=== PATIENT | male | born 1965 | race Caucasian/White ===

== ENCOUNTER 2017-04-26 10:24 | Emergency (ER) | payer SELFPAY ==
[2017-04-26] MEDS ORDERED: Ketorolac Tromethamine 30 MG/ML VIAL ONE (12:15)
[2017-04-26 12:57] LABS: Bilirubin Negative (Negative); Blood, Urine Negative (Negative); Clarity CLEAR (Clear); Glucose, Urine (Dipstick) Negative (Negative); Leukocyte Negative (Negative); Nitrite Negative (Negative); Protein, Urine (Dipstick) Negative (Neg-Trace); Specific Gravity, Urine 1.022 (1.002-1.036); Urobilinogen 0.2 mg/dL (0.2-1.0)
[2017-04-26] MEDS ORDERED: Diazepam 5 MG TAB ONE (12:58)
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
== END 2017-04-26 13:37 | disposition home or self-care (01) ==
LOC: ERS 10:24
DX: M54.42 Lumbago with sciatica, left side (principal); F17.210 Nicotine dependence, cigarettes, uncomplicated
CPT/HCPCS: 72100; 72170; 81003; 96372; J1885

== ENCOUNTER 2017-05-30 20:17 | Emergency (ER) | payer SELFPAY | END 2017-05-30 20:35 | disposition left against medical advice (07) | LOC: ERS 20:17 | DX: Z53.21 Procedure and treatment not carried out due to patient leaving prior to being seen by health care provider (principal) ==

== ENCOUNTER 2017-05-30 20:56 | Emergency (ER) | payer BC, SELFPAY ==
[2017-05-30 21:54] LABS: #Basophils 0.1 thou/uL (0.0-0.2); #Eosinphils 0.1 thou/uL (0.0-0.7); #Lymphocytes 2.6 thou/uL (1.20-3.40); #Monocytes 0.8 thou/uL (0.11-0.59); #Neutrophils 5.2 thou/uL (1.40-6.50); %Basophils 0.6 % (0.0-1.0); %Eosinophils 0.7 % (0.0-10.0); %Lymphocytes 30.1 % (21.0-51.0); %Monocytes 8.7 % (0.0-10.0); %Neutrophils 59.8 % (42.0-75.0); Hemoglobin 14.5 g/dL (14.0-18.0); Mean Corpuscular HGB CONC 34.7 g/dL (32.0-36.0); Mean Corpuscular Hemoglobin 31.2 pg (27.0-31.0); Mean Corpuscular Volume 89.9 fl (80.0-94.0); Mean Platelet Volume 7.3 fL (7.4-10.4); Platelet Count 205 thou/uL (130-400); RBC Distribution Width 11.9 % (11.5-14.5); Red Blood Cell (RBC) Count 4.65 mill/uL (4.70-6.10); White Blood Cell (WBC) Count 8.7 thou/uL (4.8-10.8)
[2017-05-30 22:08] LABS: Anion Gap 12 mmol/L (10-20); BUN (Urea Nitrogen) 21 mg/dL (8.4-25.7); Calc. Creatinine Clearance 0 mL/min (70-130); Calcium 9.1 mg/dL (7.8-10.44); Carbon Dioxide 24 mmol/L (22-29); Chloride 108 mmol/L (98-107); Estimated GFR-MDRD 89; Glucose 112 mg/dL (70-105); Potassium 4.1 mmol/L (3.5-5.1); Sodium 140 mmol/L (136-145)
[2017-05-30 22:11] LABS: CKMB 1.8 ng/mL (0-6.6); Troponin I 0.025 ng/mL (< 0.028)
[2017-05-30] MEDS ORDERED: HYDROcodone/Acetaminophen 10/325 mg Tablet ONE (22:24)
== END 2017-05-30 22:23 | disposition home or self-care (01) ==
LOC: SCSER 20:56
DX: I10 Essential (primary) hypertension (principal); M54.16 Radiculopathy, lumbar region; G89.29 Other chronic pain; F17.210 Nicotine dependence, cigarettes, uncomplicated; Z71.6 Tobacco abuse counseling
CPT/HCPCS: 80048; 82553; 84484; 85025; 93005; 96372; 99406; J1170

== ENCOUNTER 2017-07-11 12:39 | Outpatient (CLI) | payer BC, OTHER ==
--- NOTE | 2017-07-11 15:56 | MRI ---
MRI OF THE LUMBAR SPINE WITH AND WITHOUT CONTRAST: Date: 07-11-17 Comparison: None. History: Lumbar radiculopathy. Technique: Multiplanar, multisequence MR imaging of the lumbar spine provided with and without contra st. FINDINGS: The sagittal STIR imaging demonstrates no focal area of osseous marrow edema. There is a mild degree of dextroscoliosis. There is no significant anterolisthesis or retrolisthesis noted. On the basis of five lumbar type vertebral bodies, conus medullaris terminates at T12. T12-L1: Intervertebral disc height and signal intensities within normal limits. No significant centra l canal or neural foraminal stenosis. L1-2: There is disc space narrowing, disc desiccation and mild disc bulge with no central canal or ne ural foraminal stenosis. L2-3: Mild facet hypertrophy. Intervertebral disc height and signal intensity is within normal limits with no significant central canal or neural foraminal stenosis. L3-4: There is mild bilateral facet hypertrophy and hypertrophy of the ligamentum flavum. There is di sc space narrowing, disc desiccation and anterior osteophyte formation as well as disc bulge. There i s a small left paracentral annular tear and associated disc protrusion. There is mild left neural for aminal stenosis. No significant central canal or right neural foraminal stenosis. L4-5: There is disc space narrowing and disc desiccation. There is mild bilateral facet hypertrophy. No significant central canal or neural foraminal stenosis. L5-S1: Mild bilateral facet hypertrophy. There is osteophyte extension into the right neural foramen with a moderate degree of right neural foraminal stenosis. There is a left paracentral disc herniatio n with slight inferior migration. Disc herniation in the left paracentral region measures 1.0 x 0.7 c m and causes prominent left lateral recess stenosis, abutting the left S1 nerve root. No significant left neural foraminal stenosis. The post contrast imaging demonstrates mild enhancement along the per iphery of the left paracentral disc herniation at L5-S1. Post contrast imaging does not demonstrate abnormal enhancement involving the nerve roots of the caud a equina, the intervertebral discs, or the imaged vertebral bodies otherwise. An exophytic T2 hyperintense lesion emanates from the lateral aspect of the midpole right kidney cornell uring 1.6 cm, incompletely imaged on this exam. The imaged retroperitoneal structures appear grossly unremarkable otherwise. IMPRESSION: 1. There is degenerative change present within the lumbar spine, most significant finding being a dis c herniation in the left paracentral region at L5-S1 with associated left lateral recess stenosis and mass effect on the left S1 nerve root. 2. Incompletely imaged T2 hyperintense lesion emanating from the midpole of right kidney. Recommend f ollow up renal ultrasound. Code T POS: [facility]
== END 2017-07-11 12:40 | disposition home or self-care (01) ==
LOC: SCSMRI 12:39
PROVIDERS: ATTEND Neurological Surgery
DX: M47.26 Other spondylosis with radiculopathy, lumbar region (principal); M48.061 Spinal stenosis, lumbar region without neurogenic claudication
CPT/HCPCS: 72158

== ENCOUNTER 2017-08-08 08:33 | Outpatient (CLI) | payer BC, OTHER ==
[2017-08-08 09:24] LABS: #Basophils 0.1 thou/uL (0.0-0.2); #Eosinphils 0.2 thou/uL (0.0-0.7); #Lymphocytes 2.1 thou/uL (1.20-3.40); #Monocytes 0.7 thou/uL (0.11-0.59); %Basophils 1.1 % (0.0-1.0); %Eosinophils 2.2 % (0.0-10.0); %Lymphocytes 30.2 % (21.0-51.0); %Monocytes 10.3 % (0.0-10.0); %Neutrophils 56.3 % (42.0-75.0); Hemoglobin 16.2 g/dL (14.0-18.0); Mean Corpuscular HGB CONC 33.6 g/dL (32.0-36.0); Mean Corpuscular Hemoglobin 32.4 pg (27.0-31.0); Mean Corpuscular Volume 96.7 fl (80.0-94.0); Mean Platelet Volume 7.5 fL (7.4-10.4); Platelet Count 196 thou/uL (130-400); RBC Distribution Width 11.2 % (11.5-14.5); Red Blood Cell (RBC) Count 4.98 mill/uL (4.70-6.10)
[2017-08-08 09:47] LABS: Anion Gap 11 mmol/L (10-20); BUN (Urea Nitrogen) 16 mg/dL (8.4-25.7); Calc. Creatinine Clearance 0 mL/min (70-130); Calcium 8.9 mg/dL (7.8-10.44); Carbon Dioxide 22 mmol/L (22-29); Chloride 107 mmol/L (98-107); Estimated GFR-MDRD Greater than 90; Glucose 106 mg/dL (70-105); Potassium 4.5 mmol/L (3.5-5.1); Sodium 135 mmol/L (136-145)
--- NOTE | 2017-08-08 16:42 | EKG ---
Test Reason : Blood Pressure : / mmHG Vent. Rate : 066 BPM Atrial Rate : 066 BPM P-R Int : 200 ms QRS Dur : 100 ms QT Int : 452 ms P-R-T Axes : 060 088 048 degrees QTc Int : 473 ms Normal sinus rhythm ST elevation, consider early repolarization, pericarditis, or injury Non-specific intra-ventricular conduction delay Abnormal ECG Confirmed by FELICIANO HOPPER ([id number]) on 08/08/2017 4:41:35 PM Referred By: [email or web address] Confirmed By:FELICIANO HOPPER
== END 2017-08-08 08:34 | disposition home or self-care (01) ==
LOC: LABBT 08:33
PROVIDERS: ATTEND Neurological Surgery
DX: Z01.818 Encounter for other preprocedural examination (principal); M54.16 Radiculopathy, lumbar region
CPT/HCPCS: 80048; 85025; 93005; 93010

== ENCOUNTER 2017-08-15 06:40 | Day surgery (SDC) | payer BC, OTHER ==
[2017-08-08 09:17] VITALS: BMI 27.8
[2017-08-15] MEDS ORDERED: CEFAZOLIN/Water 2 GM/20 ML SYRINGE ONE (07:11)
[2017-08-15] MEDS ORDERED: Sodium Chloride 0.9% 10 ML ONE (08:27)
[2017-08-15] MEDS ORDERED: Fentanyl 100 MCG/2 ML VIAL ONE ×2 (08:50→10:35)
[2017-08-15] MEDS ORDERED: Morphine 4 MG/ML VIAL ONE (11:16)
--- NOTE | 2017-08-15 11:26 | OP ---
DATE OF PROCEDURE: 08/15/2017 SURGEON: Diego Rivas M.D. ADJUNCT PROFESSOR OF VOICE: Andres Kelly PA-C. PROCEDURES PERFORMED: Left L5-S1 laminectomy, facetectomy and diskectomy, interbody arthrodesis, int ervertebral biomechanical device, local morselized autograft, demineralized bone matrix, posterior la teral arthrodesis, and pedicle screw instrumentation, L5-S1. PROCEDURE IN DETAIL: The patient was brought to the operating room, intubated. He was rolled in the prone position on gel-filled chest rolls. The previous L5-S1 incision was reopened and L5-S1 region was identified and the prior hemilaminotomy scar was also identified. We performed left L5-S1 nimo ectomy, facetectomy, and foraminotomy and beneath the left S1 nerve root, there was a herniated disk removed in its entirety, completely decompressing the left S1 nerve root. The disc itself was incise d and debrided and the bony endplates decorticated for the purpose of arthrodesis. An appropriately sized intervertebral biomechanical PEEK device was brought into the field, filled with demineralized bone matrix, local morselized autograft, and tapped into place securely at L5-S1. Next, pedicle scre ws were placed at left L5 and left S1 using lateral fluoroscopic guidance and positioning was confirm ed with rotational x-ray. Adolfo was secured between the screws, connected by nuts which were final tig htened. The wound was then extensively irrigated, immaculate hemostasis was secured. A combination of demineralized bone matrix, local morselized autograft was laid over the right laminar and posterol ateral surfaces for the purpose of arthrodesis. Vancomycin powder was applied and the wound was then closed in anatomic layers.
[2017-08-15] MEDS ORDERED: HYDROcodone/Acetaminophen 5/325 mg Tablet ONE (11:49)
== END 2017-08-15 12:20 | disposition home or self-care (01) ==
LOC: SDC 06:40
PROVIDERS: ATTEND Neurological Surgery
PROC: 0SG30AJ Fusion of Lumbosacral Joint with Interbody Fusion Device, Posterior Approach, Anterior Column, Open Approach (ICD-10-PCS; principal; 2017-08-15)
PROC: 0ST40ZZ Resection of Lumbosacral Disc, Open Approach (ICD-10-PCS; principal; 2017-08-15)
DX: M54.16 Radiculopathy, lumbar region (principal); I10 Essential (primary) hypertension; F17.210 Nicotine dependence, cigarettes, uncomplicated; Z79.899 Other long term (current) drug therapy; Z98.890 Other specified postprocedural states
CPT/HCPCS: 76001; 96374; A4216; C1713; C1768; J2270; J3010; J3370; J3490

== ENCOUNTER 2021-10-14 08:17 | Outpatient (CLI) | payer BC | END 2021-10-14 08:18 | disposition home or self-care (01) | LOC: BICRAD 08:17 | PROVIDERS: ATTEND Family Medicine | DX: M19.042 Primary osteoarthritis, left hand (principal) ==

== ENCOUNTER 2024-03-09 09:24 | Outpatient (CLI) | payer BC | END 2024-03-09 09:25 | disposition home or self-care (01) | LOC: BICRAD 09:24 | PROVIDERS: ATTEND Family Medicine | DX: R05.9 Cough, unspecified (principal) | CPT/HCPCS: 71046 ==